=== PATIENT | male | born 1955 | race Caucasian/White ===

== ENCOUNTER → 2019-07-11 | Outpatient (CLI) | payer BC ==
[~2019-07-11] MED LIST: ASP325T PO; BENICAR HCTZ; FISH OIL 1,2001 EAC1 PO; LISI10TA2 PO; NIA500ERT; NIAC1CAP PO; PRAV10TA23 PO; PRILOSEC 40MG; [UNRECOGNIZED DRUG - CODE]
--- NOTE | 2019-07-11 15:11 | Diagnostic Imaging Report ---
INDICATION: Knee pain. Three views were obtained. FINDINGS: The alignment is normal. There are minimal degenerative changes. There is no fracture or dislocation. IMPRESSION: Minimal degenerative changes, otherwise unremarkable. Dictated by: Dictated on workstation # [id number]
== END ==
LOC: RAD 14:32
PROVIDERS: ATTEND Family Medicine
DX: M17.11 Unilateral primary osteoarthritis, right knee (principal)
CPT/HCPCS: 73562

== ENCOUNTER 2021-11-24 12:52 | Emergency (ER) | payer BC ==
[~2021-11-24] VITALS: Ht 175.3 cm; Wt 79.4 kg
[2021-11-24 12:58] VITALS: BP 136/80
[2021-11-24] MEDS ORDERED: TETANUS,DIPTH,PERTUSS P/F (BOOSTRIX) 0.5 ML VIAL IM ONE (13:15)
[2021-11-24] MEDS ORDERED: SULF1TAB38 PO (13:25)
--- NOTE | 2021-11-24 13:25 | ED Upper Extremity ---
General Chief Complaint: Foreign Body Stated Complaint: LT THUMB FOREIGN OBJECT Nursing Triage Note: Patient reports he was fishing and his triple barbed hook became embedded in his left thumb. Source: patient Exam Limitations: no limitations History of Present Illness Date Seen by Provider: Nov 24, 2021 Time Seen by Provider: 12:56 Initial Comments 66-year-old male coming in after he was fishing and got a fishing hook embedded in his left thumb just prior to arrival. It was not a fish prior to being in his hand. He is unsure of his last tetanus shot, but did get regular vaccines growing up. He is having constant moderate sharp pain in his left hand which is worse when he tries to move the hook and better with rest. He is otherwise denying any other acute complaints. Allergies and Home Medications Allergies Coded Allergies: clopidogrel (Verified Allergy, Unknown, 11/24/21) Patient Home Medication List Home Medication List Reviewed: Yes Aspirin (Aspirin 325 Mg Tab) 325 Mg Tab, 325 MG PO DAILY, (Reported) Entered as Reported by: GYPSY BLACKWELL on 09/05/09 0801 Lisinopril (Lisinopril) 10 Mg Tablet, 10 MG PO DAILY, (Reported) Entered as Reported by: GYPSY BLACKWELL on 09/05/09 0803 Niacin/Inositol Niacinate (Niacin 500 Mg Capsule) 1 Each Capsule, 500 MG PO DAILY, (Reported) Entered as Reported by: BHARTI HOLBROOK on 09/02/11 1430 [place]-3 Fatty Acids/Fish Oil (Fish Oil 1,200 Mg Softgel) 1 Each Capsule, 1,200 MG PO MWF, (Reported) Entered as Reported by: GYPSY BLACKWELL on 09/05/09 0803 Pravastatin Sodium (Pravachol) 10 Mg Tablet, 20 MG PO DAILY, (Reported) Entered as Reported by: JODY CHILDRESS on 10/03/09 0914 Sulfamethoxazole/Trimethoprim (Bactrim Ds Tablet) 1 Each Tablet, 1 EACH PO BID Prescribed by: SONG BELL on 11/24/21 1325 Review of Systems Constitutional: No fever EENTM: no symptoms reported Respiratory: no symptoms reported Cardiovascular: no symptoms reported Genitourinary: no symptoms reported Musculoskeletal: other (Warm [place] in left thumb) Skin: see HPI Psychiatric/Neurological: No Symptoms Reported All Other Systems Reviewed Negative Unless Noted: Yes Past Ujdgupl-Sfkhjv-Cwheaa Hx Patient Social History Tobacco Use?: No Substance use?: No Alcohol Use?: Yes Alcohol Frequency: Once in a while Pt feels they are or have been: No Past Medical History Surgery/Hospitalization HX: CAD, cardiac stents Surgeries: Yes Coronary Stent Reproductive Disorders: No Physical Exam Vital Signs Vital Signs - First Documented 11/24/21 12:58 Temp 36.1 Pulse 65 Resp 16 B/P (MAP) 136/80 (98) Pulse Ox 97 O2 Delivery Room Air Capillary Refill : Less Than 3 Seconds Height, Weight, BMI Height: '" Weight: lbs. oz. kg; 25.00 BMI Method: General Appearance: WD/WN, no apparent distress HEENT: PERRL/EOMI, normal ENT inspection, pharynx normal Neck: non-tender, full range of motion, supple, normal inspection Cardiovascular: regular rate, rhythm, no edema, no murmur Respiratory: chest non-tender, lungs clear, normal breath sounds, no respiratory distress, no accessory muscle use Gastrointestinal: normal bowel sounds, non tender, soft; No distended, No guarding, No rebound Back: normal inspection Shoulder: normal inspection Elbow/Forearm: normal inspection Wrist: Yes normal inspection Hand: normal ROM, soft tissue tenderness (Warm [place] embedded in the ulnar side of the left thumb in the pad of the thumb) Neurologic/Tendon: normal sensation, normal motor functions, normal tendon functions Neurologic/Psychiatric: no motor/sensory deficits, alert, normal mood/affect Skin: normal color, warm/dry Lymphatic: no adenopathy Procedures/Interventions I&D : Site: left thumb Blade Size: 11 Progress Digital block performed on the left thumb with 3 cc of 1% lidocaine with anesthesia achieved. Afterwards attempted to remove the fishhook with hemostats but was unsuccessful. Made a very small linear incision that is less than 1 mm along the length of the fishhook, and then afterwards was able to get it out. Cleaned it extensively with roughly 500 cc of normal saline and chlorhexidine. Dressed afterwards with bandage Progress/Results/Core Measures Results/Orders My Orders Orders - SONG BELL MD Dipht,Lenny(Acell),Tet Adult (Boostrix (11/24/21 13:15) Sulfamethoxazole/Trimet Ds Tab (Bactrim (11/24/21 13:30) Medications Given in ED Current Medications Medications Dose Ordered Sig/Hector Route Start Time Stop Time Status Last Admin Dose Admin Diphtheria/ Tetanus/Acell Pertussis 0.5 ml ONCE ONCE IM 11/24/21 13:15 11/24/21 13:16 DC 11/24/21 13:12 0.5 ML Trimethoprim/ Sulfamethoxazole 1 ea ONCE ONCE PO 11/24/21 13:30 11/24/21 13:31 DC 11/24/21 13:31 1 EA Vital Signs/I&O 11/24/21 12:58 Temp 36.1 Pulse 65 Resp 16 B/P (MAP) 136/80 (98) Pulse Ox 97 O2 Delivery Room Air Blood Pressure Mean: 98 Progress Progress Note : Progress Note 66-year-old male coming in due to fishhook in his left thumb. It was numbed and pulled out, see procedure note. Tolerated this well. Tetanus shot updated today. Given antibiotics given it was not clean water and this would be high risk for a felon infection. Patient was then discharged in stable condition with strict return precautions peer Departure Impression Primary Impression: Fish hook injury of finger of left hand Qualified Codes: S69.92XA - Unspecified injury of left wrist, hand and finger(s), initial encounter Disposition: HOME, SELF-CARE Condition: Improved Departure-Patient Inst. Decision time for Depature: 13:22 Referrals: ELVIN SUAREZ DO (PCP) Primary Care Physician Patient Instructions: Common Finger Injuries (DC) Add. Discharge Instructions: Keep your hand clean and away from dirty things until it fully heals. You will be on antibiotics for the next week to try to avoid infection. Take Tylenol as needed for pain. If you start having redness spread up your hand and arm, pus coming out of the wound, or fever with this then please see your regular doctor or come back to the ER. Scripts Sulfamethoxazole/Trimethoprim (Bactrim Ds Tablet) 1 Each Tablet 1 EACH PO BID for 7 Days, #14 TAB Prov: SONG BELL MD 11/24/21 SONG BELL MD Nov 24, 2021 13:25
[2021-11-24] MEDS ORDERED: TRIM/SULFAMETH 160/800 (SEPTRA DS) TAB PO ONE (13:30)
== END 2021-11-24 13:35 | disposition home or self-care (01) ==
LOC: EDUNIT# 12:52 → ER FS 12:53
DX: S69.82XA Other specified injuries of left wrist, hand and finger(s), initial encounter (principal); Z23 Encounter for immunization; W45.8XXA Other foreign body or object entering through skin, initial encounter
CPT/HCPCS: 90715; 99284

== ENCOUNTER 2022-06-04 05:39 | Outpatient (CLI) | payer BC ==
[~2022-06-04] VITALS: Ht 175.3 cm; Wt 79.7 kg
[~2022-06-04 05:39] MED LIST changes: +SULF1TAB38 PO
[2022-06-05] MEDS ORDERED: LOSA100T57 PO (11:08)
[2022-06-05] MEDS ORDERED: PRAV80TA2 PO (11:08)
[2022-06-05] MEDS ORDERED: ASPI-999 PO (11:08)
[2022-06-05] MEDS ORDERED: AMLO2.5T4 PO (11:08)
== END 2022-06-09 09:03 | disposition home or self-care (01) ==
LOC: PREOP 05:39
PROVIDERS: ATTEND Surgery
DX: Z01.818 Encounter for other preprocedural examination (principal)

== ENCOUNTER 2022-06-11 10:05 | Day surgery (SDC) | payer BC ==
--- NOTE | 2022-06-10 17:39 | HISTORY AND PHYSICAL ---
DATE OF SERVICE: 06/11/2022 ATTENDING PRIMARY CARE PHYSICIAN: Dr. Lubna Banegas. INDICATION: The patient is a 67-year-old male who was referred over to us in need for screening colonoscopy. He reports his last colonoscopy was 10 years ago, which he reports was normal. He denies any blood in the stool as well as no family history of any colon cancer. He also denies any diarrhea, constipation or any abdominal pain. MEDICAL HISTORY: Hypercholesterolemia, hypertension, coronary artery disease. SURGICAL HISTORY: Cardiac catheterization with stent placement x2 in 2006 and 2008. ALLERGIES: PLAVIX MEDICATIONS: Aspirin 81 mg daily, fish oil 1000 mg on Thursday, Thursday and Thursday. Losartan potassium 100 mg daily, pravastatin 80 mg daily, amlodipine 2.5 mg daily. SOCIAL HISTORY: Negative for tobacco smoke. Social for alcohol. FAMILY HISTORY: None. VITAL SIGNS: Blood pressure is 124/83. Current weight is 175.8 pounds at 5 feet 9 inches. REVIEW OF SYSTEMS: This is well-nourished male in no acute distress. He is not experiencing any shortness of breath or difficulty breathing. No chest pain, palpitations or diaphoresis. No nausea, vomiting or abdominal pain. No diarrhea or constipation. No red blood per rectum. No dark tarry stools. No fever or chills. No recent inadvertent weight loss. All other review of systems negative. PHYSICAL EXAMINATION: CHEST: Clear. Good breath sounds bilaterally. HEART: Regular, no murmurs. EXTREMITIES: No lower extremity edema. Negative Homans sign. HEENT: No scleral icterus. No cervical lymphadenopathy. ABDOMEN: Soft, nontender, nondistended. SKIN: Warm, dry and pink. NEUROLOGIC: He is awake, alert and oriented x3. ASSESSMENT AND PLAN: A 67-year-old male who is in need of a screening colonoscopy. At this time, we will proceed with scheduling him for a screening colonoscopy. Job ID: [id number] DocumentID: [id number] Dictated Date: 06/10/2022 14:17:05 Fire Officer Date: 06/10/2022 17:38:00 Dictated By: SUSAN GERBER APRN
[~2022-06-11] VITALS: Ht 175.3 cm; Wt 79.7 kg
[2022-06-11] VITALS (7 sets, daily range): BP systolic 108–145; BP diastolic 63–89
[~2022-06-11 10:05] MED LIST changes: +AMLO2.5T4 PO; +ASPI-999 PO; +LOSA100T57 PO; +PRAV80TA2 PO
[2022-06-11] MEDS ORDERED: LACTATED RINGERS 1,000 ML IV STA (10:09)
[2022-06-11] MEDS ORDERED: LIDOCAINE JELLY 2% 6 ML SYRINGE MM PRN (10:15)
[2022-06-11] MEDS ORDERED: LACTATED RINGERS 1,000 ML IV ONE (10:20)
[2022-06-11] MEDS ORDERED: AMLO2.5T4 PO (10:35)
[2022-06-11] MEDS ORDERED: PRAV80TA2 PO (10:35)
[2022-06-11] MEDS ORDERED: LOSA100T57 PO (10:35)
[2022-06-11] MEDS ORDERED: ASPI-1238 PO (10:35)
[2022-06-11] MEDS ORDERED: OMEG100032 PO (10:35)
--- NOTE | 2022-06-11 10:57 | Progress Note-Pre Operative ---
Pre-Operative Progress Note Date of Available H&P: Jun 11, 2022 Date H&P Reviewed: Jun 11, 2022 Time H&P Reviewed: 10:30 History & Physical: No changes noted Pre-Operative Diagnosis: screening o JAMES HUGGINS MD Jun 11, 2022 10:57
--- NOTE | 2022-06-11 10:58 | Discharge Inst-Surgical ---
D/C Lap Instructions-JOSELUIS Follow Up Activity as tolerated High Fiber Diet 25g or more per day Avoid Alcohol, Caffeine, Spicy [place] and Acid foods. Drink 64 fluid oz or more of fluids per day. Symptoms to Report: Fever over 101 degree F, Nausea/Vomiting If any problems/questions: Contact your physician or go to Emergency Room JAMES HUGGINS MD Jun 11, 2022 10:58
[2022-06-11] MEDS ORDERED: ONDANSETRON 4 MG (ZOFRAN) ORAL DISSOLVE TAB PO PRN (11:00)
[2022-06-11] MEDS ORDERED: ONDANSETRON 4 MG/2 ML (SDV) Z0FRAN IVP PRN (11:00)
[2022-06-11] MEDS ORDERED: MIDAZOLAM 2 MG/2 ML (VERSED) VIAL ONE (11:41)
[2022-06-11] MEDS ORDERED: PROPOFOL INJECTION 50 ML IV ONE (11:41)
[2022-06-11] MEDS ORDERED: LIDOCAINE JELLY 2% 6 ML SYRINGE ONE (11:46)
--- NOTE | 2022-06-11 12:24 | Progress Note-Post Operative ---
Post-Operative Progess Note Surgeon (s)/Director Of Infection Control (s) Surgeon JAMES HUGGINS MD Director Of Infection Control: none Pre-Operative Diagnosis screening colo Post-Operative Diagnosis mild chronic stage 2 ext and int hemorrhoids, moderate sigmoid diverticulosis. Procedure & Operative Findings Date of Procedure 06/11/22 Procedure Performed/Findings colonoscopy Anesthesia Type mac Estimated Blood Loss Estimated blood loss (mL): minimal Specimens/Packing Specimens Removed none JAMES HUGGINS MD Jun 11, 2022 12:24
--- NOTE | 2022-06-11 14:23 | Anesthesia-General Post-Op ---
MAC Patient Condition Mental Status/LOC: Same as Preop Cardiovascular: Satisfactory Nausea/Vomiting: Absent Respiratory: Satisfactory Pain: Controlled Complications: Absent Post Op Complications Complications None Follow Up Care/Instructions Patient Instructions None needed. Anesthesiology Discharge Order Discharge Order Patient is doing well, no complaints, stable vital signs, no apparent adverse anesthesia problems. No complications reported per nursing. YOUSIF EM CRNA Jun 11, 2022 14:23
--- NOTE | 2022-06-11 21:23 | OPERATIVE REPORT ---
DATE OF SERVICE: 06/11/2022 ATTENDING PRIMARY CARE PHYSICIAN: Dr. Lubna Banegas. PREOPERATIVE DIAGNOSIS: Screening colonoscopy. POSTOPERATIVE DIAGNOSIS: Mild chronic stage II, external, internal hemorrhoids, moderate sigmoid diverticulosis. PROCEDURE: Colonoscopy. SURGEON: Dr. Huggins. ANESTHESIA: Monitored anesthesia care. ESTIMATED BLOOD LOSS: Minimal. FINDINGS: Mild chronic stage II, external, internal hemorrhoids, moderate sigmoid diverticulosis. DISPOSITION: The patient tolerated the procedure well. INDICATIONS: The patient is a 67-year-old male referred over to us for a screening colonoscopy. His last one was approximately 10 years ago and he believes this to be normal. He states that he is otherwise doing well. Does not report any major issues with diarrhea, nor constipation as well as no red blood per rectum or any dark tarry stools. He also does not report any family history of colon cancer. DESCRIPTION OF PROCEDURE: The patient was brought to the endoscopy suite and laid in the left lateral decubitus position. After adequate IV, pain and sedative medications and monitored anesthesia care, a digital rectal examination was performed. Mild chronic stage II, external, internal hemorrhoids were identified, which were not actively edematous or inflamed and no bleeding. Normal sphincter tone was felt and there were no palpable masses. Prostate gland was palpable and appeared normal. The endoscope was then intubated into the anus, rectum and gently insufflated. The endoscope was then advanced through the valves of Kra[place] of the rectum with no polyps or neoplasms identified. Through the sigmoid colon, a moderate sigmoid diverticulosis identified. The endoscope was then advanced through the remainder of the descending, transverse and ascending colon to the cecum, which appeared normal. No polyps or neoplasms throughout the colon or rectum. The endoscope was then slowly withdrawn while taking second look and suctioning of residual air with no additional findings. The patient tolerated the procedure well. We will recommend medical management with a high fiber diet with an addition of a fiber supplement, which equal exceed to 30 grams daily as well as significant amounts of water to promote soft consistency stools on a daily basis. If he is asymptomatic, he does not need another colonoscopy for another 10 years. Job ID: [id number] DocumentID: [id number] Dictated Date: 06/11/2022 12:12:26 Laborer Drying Department Date: 06/11/2022 21:21:00 Dictated By: JAMES HUGGINS MD [facility]PITALMariluz
== END 2022-06-11 13:10 | disposition home or self-care (01) ==
LOC: ENDO 10:05
PROVIDERS: ATTEND Surgery
DX: Z12.11 Encounter for screening for malignant neoplasm of colon (principal); K57.30 Diverticulosis of large intestine without perforation or abscess without bleeding; K64.1 Second degree hemorrhoids; K64.4 Residual hemorrhoidal skin tags; Z95.5 Presence of coronary angioplasty implant and graft